=== PATIENT | female | born 1990 | race Native Hawaiian/Other Pacific Islander ===

== ENCOUNTER 2016-03-04 11:48 | Observation (INO) | payer OTHER ==
[~2016-03-04] VITALS: Ht 165.1 cm; Wt 68.0 kg
[2016-03-04 12:04] VITALS: BP 143/86; TEMP 98.1
[2016-03-04 12:54] LABS: PLATELET COUNT 258 K/uL (152-353)
[2016-03-04 13:04] LABS: POTASSIUM 3.6 mmol/L (3.6-5.2); SODIUM 132 mmol/L (136-145)
[2016-03-04 15:38] VITALS: BP 142/88; TEMP 98.5; Ht 165.1 cm; Wt 68.0 kg
[2016-03-04 16:00] VITALS: BP 142/88; TEMP 98.5
[2016-03-04 20:00] VITALS: BP 124/85; TEMP 97.8
[2016-03-05] VITALS: BP 102/63; TEMP 97.8
[2016-03-05 04:00] VITALS: BP 107/66; TEMP 98.1
[2016-03-05 05:05] LABS: PLATELET COUNT 222 K/uL (152-353)
[2016-03-05 05:24] LABS: POTASSIUM 3.4 mmol/L (3.6-5.2); SODIUM 135 mmol/L (136-145)
[2016-03-05 07:40] VITALS: BP 125/80; TEMP 98.6
--- NOTE | 2016-03-05 08:47 | NUR ---
IV SITE RED AND TENDER SITE D/C'D WITH TIP INTACT AND SITE CARE DONE. PT TO POSSIBLY GO HOME TODAY WILL RESTART IF IV SITE NEEDED. AWARE.
--- NOTE | 2016-03-05 12:05 | NUR ---
1155-D/C INSTRUCTIONS GIVEN TO PT AND PT VERBALIZES UNDERSTANDING. PT AMBULATORY OUT WITH MOTHER AT SIDE. PT REFUSES W/C.
== END 2016-03-05 12:07 | disposition home or self-care (01) ==
LOC: ED 11:48 → MED/SURG 14:19
PROVIDERS: Emergency Medicine; ADMIT Specialist
DX: N10 Acute pyelonephritis (principal); N39.0 Urinary tract infection, site not specified; D72.828 Other elevated white blood cell count; B96.20 Unspecified Escherichia coli [E. coli] as the cause of diseases classified elsewhere
CPT/HCPCS: 36415; 80048; 80053; 81000; 85027; 96360; 96367; 96372; 96374; 96375; 99220; 99284; G0378; J1885; J2550

== ENCOUNTER 2017-03-27 15:44 | Emergency (ER) | payer OTHER ==
[~2017-03-27] VITALS: Ht 162.6 cm; Wt 72.6 kg
[2017-03-27 15:56] VITALS: BP 143/95
[2017-03-27 16:39] LABS: PLATELET COUNT 231 K/uL (152-353)
== END 2017-03-27 17:25 | disposition home or self-care (01) ==
LOC: ED 15:44
PROVIDERS: Family Medicine
DX: R05 Cough (principal); R50.9 Fever, unspecified; J02.9 Acute pharyngitis, unspecified
CPT/HCPCS: 85027; 87081; 87804; 87880; 99283

== ENCOUNTER 2017-10-25 08:18 | Emergency (ER) | payer OTHER ==
[~2017-10-25] VITALS: Ht 165.1 cm; Wt 72.6 kg
[2017-10-25 08:25] VITALS: TEMP 97.2
[2017-10-25 09:55] VITALS: BP 119/76
[2017-10-26] MEDS ORDERED: AMOXICILLIN PO (23:05)
[2017-10-26] MEDS ORDERED: KETOROLAC10 MG PO (23:05)
[2017-10-26] MEDS ORDERED: [UNRECOGNIZED DRUG - OTHER] OT (23:06)
== END 2017-10-25 09:50 | disposition home or self-care (01) ==
LOC: ED 08:18
DX: H60.8X1 Other otitis externa, right ear (principal)
CPT/HCPCS: 87070; 87077; 87186; 87205; 96372; 99283; J0696; J1885

== ENCOUNTER 2017-10-26 22:48 | Emergency (ER) | payer OTHER ==
[~2017-10-26] VITALS: Ht 165.1 cm; Wt 72.6 kg
[2017-10-26] MEDS ORDERED: KETOROLAC10 MG PO (23:05)
[2017-10-26] MEDS ORDERED: AMOXICILLIN PO (23:05)
[2017-10-26] MEDS ORDERED: [UNRECOGNIZED DRUG - OTHER] OT (23:06)
[2017-10-26 23:40] LABS: PLATELET COUNT 233 K/uL (152-353)
[2017-10-27 00:42] VITALS: BP 1118/78; TEMP 98.3
== END 2017-10-27 00:43 | disposition home or self-care (01) ==
LOC: ED 22:48
DX: H70.001 Acute mastoiditis without complications, right ear (principal)
CPT/HCPCS: 36415; 85027; 96374; 96375; 99284; J1885; J2550

== ENCOUNTER 2018-03-14 20:39 | Emergency (ER) | payer OTHER ==
[~2018-03-14] VITALS: Ht 165.1 cm; Wt 77.6 kg
[~2018-03-14 20:39] MED LIST: AMOXICILLIN PO; KETOROLAC10 MG PO; [UNRECOGNIZED DRUG - OTHER] OT
[2018-03-14 23:19] VITALS: BP 124/82; TEMP 98.6
== END 2018-03-14 23:21 | disposition home or self-care (01) ==
LOC: ED 20:39
DX: N83.201 Unspecified ovarian cyst, right side (principal); R10.31 Right lower quadrant pain
CPT/HCPCS: 81000; 81025; 87086; 87088; 99283; J1885

== ENCOUNTER 2018-03-29 20:25 | Emergency (ER) | payer OTHER ==
[~2018-03-29] VITALS: Ht 165.1 cm; Wt 76.7 kg
[2018-03-29 21:33] VITALS: BP 120/78
== END 2018-03-29 21:34 | disposition home or self-care (01) ==
LOC: ED 20:25
DX: H10.9 Unspecified conjunctivitis (principal)
CPT/HCPCS: 99282

== ENCOUNTER 2018-12-13 17:21 | Emergency (ER) | payer OTHER ==
[~2018-12-13] VITALS: Ht 165.1 cm; Wt 76.7 kg
[2018-12-13] MEDS ORDERED: MIRENA IU (17:41)
[2018-12-13 19:45] VITALS: BP 128/76; TEMP 97.6
== END 2018-12-13 19:45 | disposition home or self-care (01) ==
LOC: ED 17:21
DX: J06.9 Acute upper respiratory infection, unspecified (principal)
CPT/HCPCS: 36415; 87502; 87651; 96360; 96375; 99284; J1885

== ENCOUNTER 2020-03-30 17:48 | Emergency (ER) | payer OTHER ==
[~2020-03-30] VITALS: Ht 165.1 cm; Wt 72.6 kg
[~2020-03-30 17:48] MED LIST changes: +MIRENA IU
[2020-03-30 20:53] VITALS: BP 109/68; TEMP 98.3
== END 2020-03-30 20:53 | disposition home or self-care (01) ==
LOC: ED 17:48
DX: G43.909 Migraine, unspecified, not intractable, without status migrainosus (principal); Z3A.15 15 weeks gestation of pregnancy
CPT/HCPCS: 96360; 96374; 96375; 96376; 99284; J1200; J2550

== ENCOUNTER 2020-04-09 04:22 | Emergency (ER) | payer OTHER ==
[~2020-04-09] VITALS: Ht 165.1 cm; Wt 72.6 kg
[2020-04-09 04:37] LABS: PLATELET COUNT 246 K/uL (152-353)
[2020-04-09 04:46] LABS: POTASSIUM 3.2 mmol/L (3.6-5.2)
[2020-04-09 05:50] VITALS: BP 100/60; TEMP 98.2
== END 2020-04-09 05:50 | disposition home or self-care (01) ==
LOC: ED 04:22
PROVIDERS: Family Medicine
DX: O21.8 Other vomiting complicating pregnancy (principal); Z3A.16 16 weeks gestation of pregnancy; O23.32 Infections of other parts of urinary tract in pregnancy, second trimester
CPT/HCPCS: 36415; 80053; 81000; 85027; 87086; 87088; 96360; 96375; 99284; J2405

== ENCOUNTER 2020-09-13 19:04 | Emergency (ER) | payer OTHER ==
[~2020-09-13] VITALS: Ht 165.1 cm; Wt 72.6 kg
[2020-09-13 20:53] LABS: PLATELET COUNT 389 K/uL (152-353)
[2020-09-13 21:00] LABS: POTASSIUM 3.3 mmol/L (3.6-5.2)
[2020-09-13 21:50] VITALS: BP 111/60; TEMP 99.6
== END 2020-09-13 21:50 | disposition home or self-care (01) ==
LOC: ED 19:04
PROVIDERS: Hospitalist
DX: N61.0 Mastitis without abscess (principal)
CPT/HCPCS: 36415; 80048; 85027; 87040; 96360; 96365; 96375; 99284; J1885; J2405; J3370